=== PATIENT | male | born 1965 | race Caucasian/White ===

== ENCOUNTER 2019-03-09 16:00 | Emergency (ER) | payer MEDICAID, SELFPAY ==
[2019-03-09 16:07] VITALS: BP 133/90; PULSE 76; RESP 20; TEMP 36.4; O2SAT 98
--- NOTE | 2019-03-09 16:18 | W.ED.GENAD ---
Discharge Plan Disposition Patient Disposition: HOME Condition: Improving Discharge Details Chief Complaint: Laceration Clinical Impression: Laceration of left index finger Primary Care Provider: Jules Chris ED Provider: Onur Griggs Home Meds and New Rx's Prescriptions: Continued metformin 1,000 mg tablet 1,000 mg PO DAILY Qty: 90 RF: 4 metformin 500 mg tablet 500 mg PO HS Qty: 90 RF: 4 glipizide 10 mg tablet 10 mg PO BID Qty: 180 RF: 4 empagliflozin 10 mg tablet 10 mg PO DAILY Qty: 90 RF: 4 lancets [OneTouch Delica Lancets] 33 gauge misc .ROUTE .MEDSUPPLY Qty: 200 RF: 4 multivitamin tablet 1 tab PO DAILY Qty: 90 RF: 4 OneTouch Ultra Blue Test Strip strip .ROUTE .MEDSUPPLY Qty: 100 RF: 4 pantoprazole 40 mg tablet,delayed release (DR/EC) 40 mg PO BID Qty: 180 RF: 4 aspirin [Aspirin Low-Strength] 81 MG tablet,chewable 81 mg PO DAILY RF: 0 Discharge Instructions Instructions: Finger Laceration (ED) Additional Instructions: Return Tuesday afternoon or Tuesday for reevaluation and wound check. Keep dressing in place. Continue regular medications. Medical Decision Making 54-year-old male presents after small avulsion to the distal radial aspect on the volar surface of his left index finger. Unable to control bleeding at home and brought to the ED. States that his tetanus status is out of date. There is a small avulsion, no bone exposed, no indication for repair. Dressed with Surgicel and mild compression dressing. Stable and improved. We will have him return in 72 hours for wound check. Anticipate at that time we will be able to transition to Band-Aid. He is stable and appropriate for discharge to home. Tetanus was updated prior to discharge HPI General Mode of arrival: ambulatory. Date/Time Provider Initiated Documentation: 03/09/19 16:12. Limitations to Documentation: no limitations. Information obtained by: patient. History of Present Illness 54 year old M presents to the emergency department with the chief complaint of Left index finger avulsion, described as mild, Quality is described as dull, and is localized to the left and upper extremity. Patient reports no radiation. Patient started experiencing this minute(s) and it has been constant. No relieving factors improve symptom(s), No exacerbating factors reported . Patient notes other (Bleed). Patient did receive the following treatments prior to arrival, none Related Data Home Medications Medication Instructions Recorded Confirmed aspirin [Aspirin Low-Strength] 81 mg PO DAILY tab-cap 03/29/14 03/09/19 blood sugar diagnostic strips #100 each 07/12/18 03/09/19 empagliflozin 10 mg tablet 10 mg PO DAILY #90 tab 07/12/18 03/09/19 lancets 33 gauge #200 each 07/12/18 03/09/19 multivitamin tablet 1 tab PO DAILY #90 tab 07/12/18 03/09/19 pantoprazole 40 mg tablet,delayed 40 mg PO BID #180 tab 07/12/18 03/09/19 release glipizide 10 mg tablet 10 mg PO BID #180 tab 11/14/18 03/09/19 metformin 1,000 mg tablet 1,000 mg PO DAILY #90 tab 11/14/18 03/09/19 metformin 500 mg tablet 500 mg PO HS #90 tab 11/14/18 03/09/19 Previous Rx's Medication Instructions Recorded blood sugar diagnostic strips #100 each 07/12/18 empagliflozin 10 mg tablet 10 mg PO DAILY #90 tab 07/12/18 lancets 33 gauge #200 each 07/12/18 multivitamin tablet 1 tab PO DAILY #90 tab 07/12/18 pantoprazole 40 mg tablet,delayed 40 mg PO BID #180 tab 07/12/18 release glipizide 10 mg tablet 10 mg PO BID #180 tab 11/14/18 metformin 1,000 mg tablet 1,000 mg PO DAILY #90 tab 11/14/18 metformin 500 mg tablet 500 mg PO HS #90 tab 11/14/18 Allergies Allergy/AdvReac Type Severity Reaction Status Date / Time orange juice Allergy Severe SWELLING, Unverified 03/09/19 16:09 VOMITING General Stated Complaint: Laceration SALOME: 3 Review of Systems Review of Systems Tetanus out of date. Otherwise well. 6 systems reviewed and negative. 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 Daughter No problems noted. Social History Smoking/Tobacco Use Status: Current every day Tobacco Type: smokeless tobacco Alcohol Intake: current Alcohol Intake frequency: holidays/special occasions only Drug use: Never Substance use type: does not use What type of physical activity do you participate in: none Special villa needs: No Do you feel safe at home: Yes Do you feel safe in your relationship?: Yes Exam Narrative Exam Narrative: GEN: awake, alert, oriented 3. Pleasant, well groomed, interactive. HEAD: Normocephalic, atraumatic ENT: Mucous membranes moist, oropharynx unremarkable, External ear exam unremarkable EYES: PERRL, EOMI EXT: Full ROM, no edema, no rash. Small avulsion to the left index finger on the radial aspect. Capillary refill intact at 2 seconds, no motor dysfunction Neuro: Grossly normal neurologic exam, conversant, interactive. Psych: Speech fluent, thoughts congruent, affect normal Course Vital Signs Temperature 36.4 C L 03/09/19 16:07 Pulse 76 03/09/19 16:07 Respiratory Rate 20 03/09/19 16:07 Blood Pressure 133/90 03/09/19 16:07 Pulse Oximetry 98 03/09/19 16:07 Temperature 36.4 C L 03/09/19 16:07 Temperature Source Temporal Artery Scan 03/09/19 16:07 Pulse 76 03/09/19 16:07 Respiratory Rate 20 03/09/19 16:07 Respiratory Effort Non-Labored 03/09/19 16:07 Blood Pressure 133/90 03/09/19 16:07 Blood Pressure Position Sitting 03/09/19 16:07 Pulse Oximetry 98 03/09/19 16:07 Oxygen Delivery Method Room Air 03/09/19 16:07 Oxygen Flow Rate 0 03/09/19 16:07 Pain Level 7 03/09/19 16:07
[2019-03-09 16:39] VITALS: BP 133/90; PULSE 76; RESP 20; TEMP 36.4; O2SAT 98
[2019-03-09] MEDS: Cellulose,Oxidized 2X3 PKT 1 EACH MC (16:39)
== END 2019-03-09 16:40 | disposition home or self-care (01) ==
PROVIDERS: Emergency Provider Emergency Medicine; PCP Family Medicine
DX: S65.511A Laceration of blood vessel of left index finger, initial encounter (principal); E11.9 Type 2 diabetes mellitus without complications; Z79.84 Long term (current) use of oral hypoglycemic drugs
CPT/HCPCS: 90471; 90472; 99284

== ENCOUNTER 2019-03-12 16:05 | Emergency (ER) | payer MEDICAID, SELFPAY ==
--- NOTE | 2019-03-12 16:10 | NUR.NOTE ---
pt states that this Tuesday on the second digit of his left hand here for a wound check
[2019-03-12 16:11] VITALS: BP 114/80; PULSE 77; RESP 16; TEMP 37.1; O2SAT 98
[2019-03-12 16:17] VITALS: BP 114/80; PULSE 77; RESP 16; TEMP 37.1; O2SAT 98
--- NOTE | 2019-03-12 16:21 | W.ED.GENAD ---
Discharge Plan Disposition Patient Disposition: HOME Condition: Good Discharge Details Chief Complaint: Recheck Clinical Impression: Encounter for wound re-check Primary Care Provider: Jules Chris ED Provider: Gabino Chávez Home Meds and New Rx's Prescriptions: No Action metformin 1,000 mg tablet 1,000 mg PO DAILY Qty: 90 RF: 4 metformin 500 mg tablet 500 mg PO HS Qty: 90 RF: 4 glipizide 10 mg tablet 10 mg PO BID Qty: 180 RF: 4 empagliflozin 10 mg tablet 10 mg PO DAILY Qty: 90 RF: 4 lancets [OneTouch Delica Lancets] 33 gauge misc .ROUTE .MEDSUPPLY Qty: 200 RF: 4 multivitamin tablet 1 tab PO DAILY Qty: 90 RF: 4 OneTouch Ultra Blue Test Strip strip .ROUTE .MEDSUPPLY Qty: 100 RF: 4 pantoprazole 40 mg tablet,delayed release (DR/EC) 40 mg PO BID Qty: 180 RF: 4 aspirin [Aspirin Low-Strength] 81 MG tablet,chewable 81 mg PO DAILY RF: 0 Discharge Instructions Additional Instructions: Please keep the area bandaged and covered at all times. In the next 3 to 4 days you can begin washing it gently with soap and warm water. If you notice any redness, pain with movement, drainage, or worsening of your symptoms please return immediately for reevaluation. Please follow-up with your primary care provider in the next week for wound reassessment. If you notice any worsening of your symptoms, or any new symptoms such as vomiting, diarrhea, fever, chills, shortness of breath, chest pain, numbness, weakness, or fainting , please return immediately to the emergency department for reevaluation. Please follow up with your primary care provider as soon as possible for reassessment and reevaluation. As always, it was a pleasure participating in your medical care today. Referrals: Jules Chris MD [Primary Care Provider] - Medical Decision Making This is a pleasant 54-year-old male who presents for wound recheck after he avulsed the tip of his left index finger from his nondominant hand. Exam at this time demonstrates an excellently healing finger with good secondary intention healing, good vascular status, and no neurologic or vascular compromise on exam. He has excellent flexion and extension. With signs of good wound healing, his tetanus being updated, no clinical evidence of necrotizing component, avascular component, or infectious etiology, I feel he can be discharged home. We cleaned and scrubbed the area again with chlorhexidine, we applied Dermabond to the wound area, and re-bandage. Patient will follow-up with his PCP in the next 7 days. We discussed the importance of taking a multivitamin and vitamin C for wound healing. He is no longer smoking anymore or using nicotine. I have extensively reviewed the treatment plan and discharge instructions with the patient and their family. I have addressed all patient concerns at this time. The patient and family was made aware of what symptoms to monitor for that would warrant a return to the emergency department. Discussed the plan with the patient and family, they demonstrate verbal understanding and agreement with our assessment and plan at this time. HPI General Date/Time Provider Initiated Documentation: 03/12/19 16:07. HPI Narrative: This is a 54-year-old male with past medical history of diabetes, who presents today for evaluation of wound recheck. 72 hours ago the patient lopped off the tip of his left index finger. He was seen and assessed here, Surgicel was placed, tetanus was updated and he was instructed to return in 72 hours for wound recheck. He has had no complaints since then. He denies any fever redness or drainage. He has been keeping the area well bandaged. He has no other complaints or modifying factors at this time. Related Data Home Medications Medication Instructions Recorded Confirmed aspirin [Aspirin Low-Strength] 81 mg PO DAILY tab-cap 03/29/14 03/12/19 blood sugar diagnostic strips #100 each 07/12/18 03/12/19 empagliflozin 10 mg tablet 10 mg PO DAILY #90 tab 07/12/18 03/12/19 lancets 33 gauge #200 each 07/12/18 03/12/19 multivitamin tablet 1 tab PO DAILY #90 tab 07/12/18 03/12/19 pantoprazole 40 mg tablet,delayed 40 mg PO BID #180 tab 07/12/18 03/12/19 release glipizide 10 mg tablet 10 mg PO BID #180 tab 11/14/18 03/12/19 metformin 1,000 mg tablet 1,000 mg PO DAILY #90 tab 11/14/18 03/12/19 metformin 500 mg tablet 500 mg PO HS #90 tab 11/14/18 03/12/19 Previous Rx's Medication Instructions Recorded blood sugar diagnostic strips #100 each 07/12/18 empagliflozin 10 mg tablet 10 mg PO DAILY #90 tab 07/12/18 lancets 33 gauge #200 each 07/12/18 multivitamin tablet 1 tab PO DAILY #90 tab 07/12/18 pantoprazole 40 mg tablet,delayed 40 mg PO BID #180 tab 07/12/18 release glipizide 10 mg tablet 10 mg PO BID #180 tab 11/14/18 metformin 1,000 mg tablet 1,000 mg PO DAILY #90 tab 11/14/18 metformin 500 mg tablet 500 mg PO HS #90 tab 11/14/18 Allergies Allergy/AdvReac Type Severity Reaction Status Date / Time orange juice Allergy Severe SWELLING, Unverified 03/12/19 16:13 VOMITING General Stated Complaint: Recheck SALOME: 4 Review of Systems Review of Systems All systems reviewed & are unremarkable except as noted in HPI and below PFSH Social History Smoking/Tobacco Use Status: Current every day Tobacco Type: smokeless tobacco Alcohol Intake: current Alcohol Intake frequency: holidays/special occasions only Drug use: Never Substance use type: does not use What type of physical activity do you participate in: none Special villa needs: No Do you feel safe at home: Yes Do you feel safe in your relationship?: Yes Exam Narrative Exam Narrative: 1.Const: Well-nourished, Well-developed, appearing stated age 2.Eyes: PERRL, no conjunctival injection, and symmetrical lids. 3.ENT: Atraumatic external nose and ears. Moist MM. Neck: Symmetric, trachea midline, No thyromegaly. 4.CVS: +S1/S2, No murmurs or gallops. Peripheral pulses 2+ and equal in all extremities. Brisk capillary refill in all extremities. 5.RESP: Unlabored respiratory effort. Clear to auscultation bilaterally. No wheezes rales or rhonchi 6.GI: Soft, Nontender/Nondistended, No hepatosplenomegaly. No guarding or rebound. 7.MSK: Normocephalic, left index finger demonstrates evidence of a slightly avulsed fingertip, which is healing well. Good wound healing with secondary intention. No active bleeding, no evidence of erythema or infection. No evidence of discharge or drainage. Normal movement for flexion and extension of the finger, normal sensation surrounding the distal fingertip. No evidence of gangrene, necrotizing component or a vascular component. Surrounding the distal fingertip, there is good evidence of vascular presence, with brisk capillary refill 8.Skin: Warm, Dry. No rashes or lesions. Please see musculoskeletal for description of finger. 9.Neuro: gas check pad maker II-XII grossly intact. Sensation grossly intact, no focal neurologic deficits. 10.Psych: (AAO) x3. Appropriate mood and affect Course Vital Signs Temperature 37.1 C 03/12/19 16:11 Pulse 77 03/12/19 16:11 Respiratory Rate 16 03/12/19 16:11 Blood Pressure 114/80 03/12/19 16:11 Pulse Oximetry 98 03/12/19 16:11 Temperature 37.1 C 03/12/19 16:17 Temperature Source Skin 03/12/19 16:11 Pulse 77 03/12/19 16:17 Respiratory Rate 16 03/12/19 16:17 Respiratory Effort 03/12/19 16:15 Blood Pressure 114/80 03/12/19 16:17 Blood Pressure Position Sitting 03/12/19 16:11 Pulse Oximetry 98 03/12/19 16:17 Oxygen Delivery Method Room Air 03/12/19 16:11 Oxygen Flow Rate 0 03/12/19 16:11 Pain Level 1 03/12/19 16:17
--- NOTE | 2019-03-12 16:39 | NUR.NOTE ---
prior to discharge pt finger was bandaged wth tube anibal
== END 2019-03-12 16:40 | disposition home or self-care (01) ==
PROVIDERS: Emergency Provider Student in an Organized Health Care Education/Training Program; PCP Family Medicine
DX: S61.211D Laceration without foreign body of left index finger without damage to nail, subsequent encounter (principal); X58.XXXD Exposure to other specified factors, subsequent encounter; E11.9 Type 2 diabetes mellitus without complications; Z79.84 Long term (current) use of oral hypoglycemic drugs

== ENCOUNTER 2019-03-12 16:40 | Outpatient (CLI) | payer MEDICAID, SELFPAY ==
[2019-03-12 18:58] LABS: Hemoglobin A1C 8.9 % (4.5-6.2)
== END 2019-03-12 17:00 ==
PROVIDERS: PCP Family Medicine; Visit Provider Family Medicine
DX: E11.9 Type 2 diabetes mellitus without complications (principal)
CPT/HCPCS: 36415; 83036

== ENCOUNTER 2019-06-22 07:47 | Outpatient (CLI) | payer MEDICAID, SELFPAY ==
[2019-06-22 09:31] LABS: Hemoglobin A1C 7.3 % (4.5-6.2)
[2019-06-22 09:35] LABS: Anion Gap 12.2 mmol/L (3-11); BUN 19 mg/dL (7-18); CO2 23.8 mmol/L (21.0-32.0); CREATININE 0.95 mg/dL (0.70-1.30); Chloride 103 mmol/L (98-107); Glucose 205 mg/dL (70-100); Potassium 4.5 mmol/L (3.5-5.1); Sodium 139 mmol/L (136-145)
== END 2019-06-22 08:07 ==
PROVIDERS: PCP Family Medicine; Visit Provider Family Medicine
DX: E11.65 Type 2 diabetes mellitus with hyperglycemia (principal)
CPT/HCPCS: 36415; 80048; 83036

== ENCOUNTER 2020-01-28 08:52 | Emergency (ER) | payer MEDICAID, SELFPAY ==
[2020-01-28 08:59] VITALS: BP 134/79; PULSE 98; TEMP 36.7; O2SAT 96
--- NOTE | 2020-01-28 08:59 | ED.GENADUL_ITS ---
Discharge Plan Disposition Patient Disposition: HOME Condition: Stable Discharge Details Chief Complaint: Laceration Clinical Impression: Open finger fracture Primary Care Provider: Jules Chris ED Provider: Erasmo Bear Home Meds and New Rx's Prescriptions: New cephalexin [Keflex] 500 mg capsule 500 mg PO QID 10 Days Qty: 40 RF: 0 No Action glipizide 10 mg tablet 10 mg PO BID Qty: 180 RF: 4 (DME) FreeStyle John 14 Day [place] Misc See Rx Instructions .ROUTE .MEDSUPPLY Qty: 1 RF: 4 (DME) FreeStyle John 14 Day Sensor Kit See Rx Instructions .ROUTE .MEDSUPPLY Qty: 1 RF: 4 (DME) lancets [OneTouch Delica Lancets] 33 gauge misc See Dose Instructions .ROUTE .MEDSUPPLY Qty: 200 RF: 4 multivitamin tablet 1 tab PO DAILY Qty: 90 RF: 4 aspirin [Aspirin Low-Strength] 81 MG tablet,chewable 81 mg PO DAILY RF: 0 (DME) OneTouch Ultra Blue Test Strip strip See Dose Instructions .ROUTE .MEDSUPPLY Qty: 100 RF: 4 empagliflozin 10 mg tablet 10 mg PO DAILY Qty: 90 RF: 4 pantoprazole 40 mg tablet,delayed release (DR/EC) 40 mg PO BID Qty: 180 RF: 4 metformin 500 mg tablet 500 mg PO HS Qty: 90 RF: 4 metformin 1,000 mg tablet 1,000 mg PO DAILY Qty: 90 RF: 4 Discharge Instructions Instructions: Finger Fracture (ED) Additional Instructions: Keflex as directed. Rest, elevate, change outer dressing daily, Dermabond glue will come off on its own in the next 5 days or so. I have given you the name and number of our local orthopedic, Dr. Bray, I recommend contacting his office later today or tomorrow for prompt outpatient reevaluation. Ideally being evaluated by the end of the week would be in your best interest to avoid unforeseen complications. Referrals: Saroj Bray MD [ [facility] STAFF PHYSICIAN] - Medical Decision Making 54-year-old gentleman with a left middle finger injury, Omar versus finger. Nondominant hand. Tetanus up-to-date. Will obtain x-ray to rule out bony involvement. Wound will be thoroughly cleaned and irrigated. Will perform digital block and repair the laceration. Digital block performed using a total of 5 cc 2% lidocaine. Patient tolerated well. The laceration was thoroughly cleaned and irrigated. Upon reassessment, there is no true laceration that required approximation. The wound margins were irregular and jagged. There was loose tissue that could be laid back like a flap laceration. The wound was loosely approximated using Dermabond. Patient tolerated well. Once the Dermabond was completely dried a bulky nonstick dressing was applied. X-ray reveals subtle tuft fracture. Discussed plan with patient. He would prefer IM medication over IV medication. Will give 1 g IM Ancef now, prescribed Keflex, and set him up on the orthopedic out patient list Patient with no additional questions or concerns, comfortable discharge Medical Records Medical records reviewed: Yes I reviewed the patient's medical records. Imaging Data Radiologic Study: Attestation: I personally reviewed and interpreted this imaging study as follows: Imaging: X-Ray My impression: Subtle left third finger tuft fracture HPI General Mode of arrival: ambulatory . Date/Time Provider Initiated Documentation: 01/28/20 08:55 . Limitations to Documentation: no limitations . Information obtained by: patient . HPI Narrative: 54-year-old gentleman, history of diabetes, who is right-hand dominant presents with a left middle fing er injury that he sustained at work just prior to arrival. No other injury. Tetanus up-to-date. Pain is a 4 out of 10. Sawblade versus fingertip. Denies numbness, tingling, weakness. Related Data Home Medications Medication Instructions Recorded Confirmed aspirin [Aspirin Low-Strength] 81 mg PO DAILY tab-cap 03/29/14 12/25/19 lancets 33 gauge #200 each 07/12/18 12/25/19 multivitamin 1 tab PO DAILY #90 tab 07/12/18 12/25/19 glipizide 10 mg tablet 10 mg PO BID #180 tab 11/14/18 12/25/19 blood sugar diagnostic #100 each 04/27/19 12/25/19 empagliflozin 10 mg tablet 10 mg PO DAILY #90 tab 05/07/19 12/25/19 flash glucose scanning reader #1 each 10/23/19 12/25/19 flash glucose sensor #1 each 10/23/19 12/25/19 pantoprazole 40 mg tablet,delayed 40 mg PO BID #180 tab 11/20/19 12/25/19 release metformin 1,000 mg tablet 1,000 mg PO DAILY #90 tab 12/11/19 12/25/19 metformin 500 mg tablet 500 mg PO HS #90 tab 12/11/19 12/25/19 cephalexin [Keflex] 500 mg PO QID 10 Days #40 cap 01/28/20 Previous Rx's Medication Instructions Recorded lancets 33 gauge #200 each 07/12/18 multivitamin 1 tab PO DAILY #90 tab 07/12/18 glipizide 10 mg tablet 10 mg PO BID #180 tab 11/14/18 blood sugar diagnostic #100 each 04/27/19 empagliflozin 10 mg tablet 10 mg PO DAILY #90 tab 05/07/19 flash glucose scanning reader #1 each 10/23/19 flash glucose sensor #1 each 10/23/19 pantoprazole 40 mg tablet,delayed 40 mg PO BID #180 tab 11/20/19 release metformin 1,000 mg tablet 1,000 mg PO DAILY #90 tab 12/11/19 metformin 500 mg tablet 500 mg PO HS #90 tab 12/11/19 cephalexin [Keflex] 500 mg PO QID 10 Days #40 cap 01/28/20 Allergies Allergy/AdvReac Type Severity Reaction Status Date / Time orange juice Allergy Severe SWELLING, Unverified 01/28/20 09:31 VOMITING General SALOME: 4 Review of Systems Cardiovascular Cardiovascular: Denies chest pain Gastrointestinal Gastrointestinal: Denies nausea and Denies vomiting Musculoskeletal Musculoskeletal: Denies numbness and Denies tingling Integumentary/Breasts Skin/Breast: Denies rash Neurologic Neurologic: Denies numbness and Denies tingling [facility] Medical History Barretts esophagus (Chronic 04/28/15) DR. 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 Daughter No problems noted. Social History Smoking/Tobacco Use Status: Current every day Tobacco Type: smokeless tobacco Alcohol Intake: current Alcohol Intake frequency: holidays/special occasions only Drug use: Never Substance use type: does not use What type of physical activity do you participate in: none Special villa needs: No Do you feel safe at home: Yes Do you feel safe in your relationship?: Yes Exam Const General: cooperative, healthy appearing, comfortable and no acute distress Orientation: alert and awake HENMT Head: normal to inspection, normocephalic and atraumatic Mouth: moist mucous membranes Eyes Conjunctivae: conjunctivae normal Neck Neck: normal visual inspection, trachea midline and supple Resp Effort & Inspection: normal respiratory effort and able to speak in complete sentences Cardio Rate: regular rate Rhythm: regular rhythm Skin General skin exam: no rashes or lesions noted Neuro General: patient alert, patient awake, moves all extremities and no focal motor deficits Motor: muscle tone normal throughout and strength 5/5 throughout Sensory Exam: no sensory deficits noted Extrem Left upper extremity: hand Details: normal capillary refill, neuromotor exam normal, neurosensory exam normal, tendon exam normal, tenderness (Distal left middle finger), normal ROM of fingers, no swelling, laceration (Irregular, distal to DIP, both extensor and flexor aspect) and other (Laceration is irregular, the distal two thirds of the nail had been removed) Psych Appearance: grossly normal Mental Status: mental status grossly normal
--- NOTE | 2020-01-28 09:00 | DI.RAD_ITS ---
EXAM: XR FINGER LT MIDDLE CLINICAL HISTORY: saw vs finger TECHNIQUE: COMPARISON: LEFT THUMB from 04/06/2011 FINDINGS: Three views were obtained. There is soft tissue defect of the tip of the middle finger with a minima l associated lucency of the tuft of the distal phalanx of the middle finger which appears to represen t a minimally displaced fracture. No other bony abnormality seen. IMPRESSION:
[2020-01-28] MEDS: ceFAZolin 1,000 MG VIAL 1000 MG IM (10:31)
[2020-01-28 10:53] VITALS: BP 114/74; PULSE 88; TEMP 37; O2SAT 96
== END 2020-01-28 10:59 | disposition home or self-care (01) ==
LOC: ER 10:23
PROVIDERS: Emergency Provider Physician Assistant; PCP Family Medicine
DX: S62.633B Displaced fracture of distal phalanx of left middle finger, initial encounter for open fracture (principal); W31.2XXA Contact with powered woodworking and forming machines, initial encounter; E11.9 Type 2 diabetes mellitus without complications; Z79.84 Long term (current) use of oral hypoglycemic drugs
CPT/HCPCS: 12001; 26750; 96372; 73140; J0690

== ENCOUNTER 2020-11-25 03:40 | Outpatient (CLI) | payer MEDICAID, SELFPAY ==
[2020-11-25 08:46] LABS: CREATININE 1.04 mg/dL (0.70-1.30); Calculated LDL 196 mg/dL (<100); Cholesterol 280 mg/dL (<200); HDL Cholesterol 47 mg/dL (40-60); Triglyceride 186 mg/dL (<150)
[2020-11-25 08:54] LABS: Hemoglobin A1C 8.1 % (<5.7)
== END 2020-11-25 04:00 ==
PROVIDERS: PCP Nurse Practitioner; Visit Provider Nurse Practitioner
DX: E11.65 Type 2 diabetes mellitus with hyperglycemia (principal); E78.5 Hyperlipidemia, unspecified
CPT/HCPCS: 36415; 80061; 82565; 83036

== ENCOUNTER 2021-02-18 16:27 | Outpatient (REF) | payer MEDICAID, SELFPAY ==
[2021-02-18 16:09] LABS: Hemoglobin A1C 7.6 % (<5.7)
[2021-02-18 16:14] LABS: ALT 30 U/L (16-63); AST 18 U/L (15-37); Alkaline Phosphatase 52 U/L (46-116); Anion Gap 10.5 mmol/L (3-11); BUN 15 mg/dL (7-18); Bilirubin, Total 0.5 mg/dL (0.2-1.0); CO2 26.5 mmol/L (21.0-32.0); Calcium 9.1 mg/dL (8.5-10.1); Calculated LDL 175 mg/dL (<100); Chloride 104 mmol/L (98-107); Cholesterol 256 mg/dL (<200); Glucose 154 mg/dL (74-106); HDL Cholesterol 46 mg/dL (40-60); Potassium 4.1 mmol/L (3.5-5.1); Sodium 141 mmol/L (136-145); Total Protein 7.2 g/dL (6.4-8.2); Triglyceride 179 mg/dL (<150)
== END 2021-02-18 16:28 | disposition home or self-care (01) ==
LOC: NCHCN 16:27
PROVIDERS: PCP Physician Assistant; Visit Provider Physician Assistant
DX: Z13.1 Encounter for screening for diabetes mellitus (principal); Z12.5 Encounter for screening for malignant neoplasm of prostate; Z13.220 Encounter for screening for lipoid disorders
CPT/HCPCS: 80053; 80061; 84153; 83036

== ENCOUNTER 2022-04-16 19:10 | Outpatient (REF) | payer MEDICAID, SELFPAY ==
[2022-04-16 19:24] LABS: HCT 43.5 % (40.0-50.0); MCH 29.8 pg (27.0-33.0); MCHC 34.5 % (32.0-36.0); MCV 87 fL (80-95); MPV 10.3 fL (8.0-11.0); Platelet Count 251 10^3/uL (130-400); RBC 5.03 10^6/uL (4.36-5.78); RDW 12.1 % (11.8-14.1); RDW-SD 38.5 fL; WBC 9.15 10^3/uL (4.4-10.8)
[2022-04-16 20:11] LABS: Hemoglobin A1C 9.5 % (<5.7)
[2022-04-16 20:20] LABS: Anion Gap 11.5 mmol/L (3-11); BUN 19 mg/dL (7-18); CO2 23.5 mmol/L (21.0-32.0); CREATININE 0.9 mg/dL (0.70-1.30); Calculated LDL 170 mg/dL (<100); Chloride 102 mmol/L (98-107); Cholesterol 241 mg/dL (<200); Glucose 225 mg/dL (74-106); HDL Cholesterol 50 mg/dL (40-60); Sodium 137 mmol/L (136-145); Triglyceride 109 mg/dL (<150)
== END 2022-04-16 19:11 | disposition home or self-care (01) ==
LOC: NCHCN 19:10
PROVIDERS: PCP Physician Assistant; Visit Provider Physician Assistant
DX: E78.00 Pure hypercholesterolemia, unspecified (principal); E11.9 Type 2 diabetes mellitus without complications; Z12.5 Encounter for screening for malignant neoplasm of prostate
CPT/HCPCS: 80048; 80061; 85027; 83036

== ENCOUNTER 2023-09-19 17:22 | Emergency (ER) | payer OTHER, SELFPAY ==
[2023-09-19 17:29] VITALS: BP 126/77; PULSE 81; RESP 16; TEMP 37.2; O2SAT 98
[2023-09-19] MEDS: Normal Saline 1,000 ML 1000 ML IV ×2 (17:54→18:47)
[2023-09-19 18:00] LABS: Abs Immature Grans 0.03 10^3/uL (0.0-0.06); Absolute Basophil Count 0.05 10^3/uL (0.0-0.2); Absolute Eosinophil Count 0.07 10^3/uL (0.0-0.7); Absolute Monocyte Count 0.59 10^3/uL (0.1-0.8); Absolute Neutrophil Count 5.17 10^3/uL (1.2-6.7); BE (Venous) 1 mmol/L (-2-3); Basophils % 0.6; Eosinophils % 0.9; HCO3 (Venous) 26 mmol/L (23-28); HCT 40.2 % (40.0-50.0); Immature Grans % 0.4; Lymphocytes % 24.3; MCH 30.1 pg (27.0-33.0); MCHC 34.8 % (32.0-36.0); MCV 87 fL (80-95); MPV 9.7 fL (8.0-11.0); Monocytes % 7.6; Neutrophils % 66.2; O2 Sat (Venous) 64 %; Platelet Count 247 10^3/uL (130-400); RBC 4.65 10^6/uL (4.36-5.78); RDW-SD 38.1 fL; TCO2 (Venous) 23 mmol/L (24-29); WBC 7.81 10^3/uL (4.4-10.8); pCO2 (Venous) 43 mmHg (41-51); pH (Venous) 7.39 (7.31-7.41); pO2 (Venous) 34 mmHg
[2023-09-19 18:19] LABS: ALT 25 U/L (16-63); AST 15 U/L (15-37); Alkaline Phosphatase 75 U/L (46-116); BUN 25 mg/dL (7-18); Bilirubin, Total 0.5 mg/dL (0.2-1.0); CREATININE 1.1 mg/dL (0.70-1.30); Calcium 9.3 mg/dL (8.5-10.1); Chloride 94 mmol/L (98-107); Estimated GFR 76.85 (mL/min/1.73m2); Magnesium 2.4 mg/dL (1.8-2.4); Potassium 4.4 mmol/L (3.5-5.1); Sodium 129 mmol/L (136-145); Total Protein 7.8 g/dL (6.4-8.2)
[2023-09-19 18:21] LABS: Glucose 567 mg/dL (74-106)
[2023-09-19 19:13] LABS: Bilirubin Negative (Negative); Blood Trace-intact (Negative); Clarity Clear (Clear); Glucose 500 mg/dL (Negative); Ketones 40 mg/dL (Negative); Leukocyte Esterase Negative (Negative); Nitrite Negative (Negative); Urobilinogen 0.2 mg/dL (Up to 0.2)
[2023-09-19 19:20] LABS: Bacteria Negative HPF (Negative); Crystals Negative HPF (Negative); Epithelial Cells Negative HPF (Negative); Mucus Negative (Negative); RBC 0-2 HPF (0-2); WBC Negative HPF (0-5)
[2023-09-19 19:21] LABS: C & S Indicated? No; Casts Negative LPF (Negative)
[2023-09-19] MEDS: Insulin REGULAR-Human 100 UNITS/ML UNIT 10 UNITS SC (19:23)
[2023-09-19] MEDS: Insulin Glargine 300 UNITS/3 ML PEN 30 UNITS SC (19:44)
--- NOTE | 2023-09-19 20:28 | W.ED.GENAD ---
Discharge Plan Disposition Patient Disposition: Home Discharge Details Clinical Impression: Hyperglycemia Primary Care Provider: Wesley Mendoza ED Provider: Everardo Cruz Home Meds and New Rx's Prescriptions: No Action (DME) FreeStyle John 14 Day [place] Misc See Rx Instructions .ROUTE .MEDSUPPLY Qty: 1 4RF Rx Instructions: Check Blood sugar 4 times a day atorvastatin 80 mg tablet 80 mg PO QHS Qty: 90 3RF multivitamin tablet 1 tab PO DAILY Qty: 90 4RF aspirin [Aspirin Low-Strength] 81 MG tablet,chewable 81 mg PO DAILY insulin aspart U-100 [Novolog FlexPen U-100 Insulin] 100 unit/mL (3 mL) insulin pen See Rx Instructions SC AC MDD 35 units Qty: 30 5RF Rx Instructions: 5 units before breakfast, 3 units before lunch, 9 units before dinner subcut before meals; (DME) OneTouch Ultra Blue Test Strip Strip See Dose Instructions .ROUTE .MEDSUPPLY Qty: 100 4RF Dose Instruction: As directed Rx Instructions: Test QID (DME) FreeStyle John 14 Day Sensor Kit See Rx Instructions .ROUTE .MEDSUPPLY Qty: 1 4RF Rx Instructions: Check Blood sugar 4 times a day (DME) lancets [OneTouch Delica Lancets] 33 gauge misc See Dose Instructions .ROUTE .MEDSUPPLY Qty: 200 4RF Dose Instruction: As directed Rx Instructions: one BID metformin 500 mg tablet 500 mg PO HS Qty: 90 4RF metformin 1,000 mg tablet 1,000 mg PO DAILY Qty: 90 4RF Rx Instructions: Take in am pantoprazole 40 mg tablet,delayed release (DR/EC) 40 mg PO BID Qty: 180 4RF (DME) pen needle, diabetic 31 gauge x 3/16 needle See Rx Instructions .ROUTE .MEDSUPPLY Qty: 100 4RF Rx Instructions: 1 unit SC AC apple cider vinegar 500 mg tablet 1,500 mg PO DAILY ascorbic acid (vitamin C) [Vitamin C] 1,000 mg Tablet 1,000 mg PO DAILY Discharge Instructions Instructions: Diabetic Hyperglycemia (ED) Additional Instructions: Please use the provided insulin pen and take your normally prescribed 30 units before bed unless this Lantus prescription was changed by your primary care then please follow their directions. Please eat a low carbohydrate diet as carbohydrates will continue to increase your sugar as you wait for your new medications and insurance to provide medication coverage. If you have any new or significant worsening of symptoms please return to the emergency department for reassessment Referrals: Wesley Mendoza [Primary Care Provider] - Medical Decision Making Patient presenting to the emergency department for chief complaint of high blood sugar. Patient reports that he has been out of his medication due to insurance change for over 6 weeks. Patient states he has been attempting to just use diet and boal-tep-bzuaral apple cider vinegar and glycemic support supplement. He states that his sugars normally run between 250 and 300 but over the last 24 to 48 hours has had significant increase in thirst and urination. said today she noticed some slight slurred speech and they check patient's blood sugar and machine at home read high. Patient denies any focal neurological findings, is alert and oriented x3 and no focal neurological findings on exam. We feel that patient slurred speech possibly secondary to his increased blood sugar. We will treat patient with IV fluid boluses pending lab work-up. Reviewed patient's labs and CBC is unremarkable, VBG shows no acidosis and only slightly low CO2 otherwise is unremarkable. CMP does show a slightly low sodium at 129, chloride of 94, BUN of 25, glucose of 567 otherwise all other lab values are in normal range, urinalysis does show ketones blood and glucose otherwise negative. given that patient's potassium was fine and I did review his home medications which she is supposed to be on Lantus we did give patient his normally prescribed 30 units of nightly Lantus along with 10 units of regular insulin. Fingerstick glucose was checked after 2 bags of normal saline were given and the above-noted insulin. Patient's glucose is 270. Patient states significant improvement of overall symptoms and how he is feeling and is requesting to go home. Lantus pen was given to patient due to his current financial constraints and insurance issues while he is pending getting his medications that were just prescribed to him. Otherwise I do feel that patient is able to safely follow-up with his primary care provider and obtain medications on outpatient basis and start them as soon as possible. Did discuss with patient return precautions especially if he worsens or has persistent elevated blood sugar. After discussion of diagnosis and plan of care, significant other and patient has no further needs, questions, or concerns and states clear understanding to return to the emergency department for any worsening symptoms. This documentation was generated using [employer] dictation system, please disregard any oddities of phrase or misspellings. Lab Data Lab results reviewed: Yes I reviewed the patient's lab results. HPI General Mode of arrival: ambulatory. Date/Time Provider Initiated Documentation: 09/19/23 17:25. Limitations to Documentation: no limitations. Information obtained by: patient, family and RN notes reviewed. History of Present Illness 58 year old M presents to the emergency department with the chief complaint of High blood sugar, described as similar to prior episodes, Patient started experiencing this day(s) (1) Patient notes no other symptoms.. Patient did receive the following treatments prior to arrival, none Related Data Home Medications Medication Instructions Recorded Confirmed aspirin 81 mg chewable tablet 81 mg PO DAILY 03/29/14 09/19/23 (Aspirin Low-Strength) multivitamin 1 tab PO DAILY #90 tabs 07/12/18 09/19/23 flash glucose scanning reader #1 ea 10/23/19 11/25/20 (FreeStyle John 14 Day [place]) ascorbic acid (vitamin C) 1,000 mg 1,000 mg PO DAILY 01/28/20 09/19/23 tablet (Vitamin C) insulin aspart U-100 100 unit/mL See Rx Instructions subcut AC #30 08/06/20 09/19/23 (3 mL) subcutaneous pen (Novolog mL FlexPen U-100 Insulin aspart) blood sugar diagnostic (OneTouch #100 ea 11/04/20 11/25/20 Ultra Blue Test Strip) flash glucose sensor (FreeStyle #1 ea 11/04/20 11/25/20 John 14 Day Sensor kit) lancets 33 gauge (OneTouch Delica #200 ea 11/04/20 11/25/20 Lancets) metformin 1,000 mg tablet 1,000 mg PO DAILY #90 tabs 11/04/20 09/19/23 metformin 500 mg tablet 500 mg PO HS #90 tabs 11/04/20 09/19/23 pantoprazole 40 mg tablet,delayed 40 mg PO BID #180 tabs 11/04/20 09/19/23 release pen needle, diabetic 31 gauge x #100 ea 11/04/20 11/25/20 3/16 atorvastatin 80 mg tablet 80 mg PO QHS #90 tabs 11/25/20 09/19/23 apple cider vinegar 500 mg tablet 1,500 mg PO DAILY 09/19/23 09/19/23 Previous Rx's Medication Instructions Recorded multivitamin 1 tab PO DAILY #90 tabs 07/12/18 flash glucose scanning reader #1 ea 10/23/19 (FreeStyle John 14 Day [place]) insulin aspart U-100 100 unit/mL See Rx Instructions subcut AC #30 08/06/20 (3 mL) subcutaneous pen (Novolog mL FlexPen U-100 Insulin aspart) blood sugar diagnostic (Meaningfyuch #100 ea 11/04/20 Ultra Blue Test Strip) flash glucose sensor (Advanced Digital DesignStyle #1 ea 11/04/20 John 14 Day Sensor kit) lancets 33 gauge (Synergy HubTouch Delica #200 ea 11/04/20 Lancets) metformin 1,000 mg tablet 1,000 mg PO DAILY #90 tabs 11/04/20 metformin 500 mg tablet 500 mg PO HS #90 tabs 11/04/20 pantoprazole 40 mg tablet,delayed 40 mg PO BID #180 tabs 11/04/20 release pen needle, diabetic 31 gauge x #100 ea 11/04/20 3/16 atorvastatin 80 mg tablet 80 mg PO QHS #90 tabs 11/25/20 Allergies Allergy/AdvReac Type Severity Reaction Status Date / Time orange juice Allergy Severe SWELLING, Unverified 09/19/23 17:58 VOMITING General Stated Complaint: Diabetes SALOME: 2 Review of Systems Constitutional Constitutional: Denies chills, Denies fever(s) and Denies headache(s) Eyes Eyes: Denies change in vision ENT Ears, Nose, Mouth, and Throat: Denies headache(s), Denies nasal congestion and Denies sore throat Cardiovascular Cardiovascular: Denies chest pain, Denies syncope and Denies dyspnea Respiratory Respiratory: Denies dyspnea Gastrointestinal Gastrointestinal: Denies abdominal pain, Denies nausea and Denies vomiting Genitourinary Genitourinary: Reports urinary frequency Neurologic Neurologic: Reports abnormal speech, Denies confusion, Denies syncope, Denies headache(s), Denies localized weakness, Denies seizure-like activity and Denies tremor(s) Psychiatric Psychiatric: Denies confusion Endocrine Endocrine: Reports polydipsia and Reports polyuria PFSH All Active Problems Hyperglycemia (Acute) Diabetes mellitus type II, uncontrolled (Chronic 02/09/13) 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 PETIT; 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-EGD Gastro-esophageal reflux disease with esophagitis Diabetes mellitus Surgical History History of open reduction and internal fixation (ORIF) procedure - 2009 (?) Fracture, Open Treatment Thumb and fingers Family History Father Heart disease CABG Daughter No problems noted. Daughter No problems noted. Mother No problems noted. Son No problems noted. Son No problems noted. Social History Smoking/Tobacco Use Status: Current every day Tobacco Type: smokeless tobacco Smokeless tobacco user: snuff Quit status: has quit before Smoking risk assessment performed?: Yes Alcohol Intake: current Alcohol Intake frequency: 0-2 drinks per day Alcohol type: hard liquor Drug use: Never Substance use type: does not use Caregiver/Support person: No Household members: spouse Housing: house Communication Needs: Hard of Hearing Pets and animals: Yes Pets and animals: cat(s) and dog(s) Sexually active: Yes Do you think of yourself as: straight/heterosexual Current gender identity: male What is your relationship status?: How often do you talk on the phone with friends or family?: three or more times per week How often do you get together with friends or relatives?: never How often do you attend presybeterian or uatsdin services?: decline to answer Do you belong to any clubs or organized social groups?: no Panel score (0-1 are the most socially isolated patients): 2 What type of physical activity do you participate in: decline to answer Duration: decline to answer Frequency: decline to answer Jimena/Islam: None Special jimena needs: No Seatbelt use: sometimes Helmet use: No 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 Do you feel safe at home: Yes Do you feel safe in your relationship?: Yes Victim of physical abuse: No Victim of emotional abuse: No Victim of sexual abuse: No Would you like helpful sources: No Exam Const General: cooperative, healthy appearing, no acute distress and well groomed Orientation: alert, awake and oriented x3 HENMT Head: normal to inspection Ears: hearing grossly normal bilaterally Mouth: oral mucosae normal and moist mucous membranes Throat: posterior oropharynx normal Eyes Visual Franks: normal visual franks by confrontation Alignment and Position: alignment normal Periorbital: periorbital findings normal Eyelids: eyelids normal Sclera: sclerae normal Cornea: corneas normal Pupils: PERRL EOM: EOM intact bilaterally Neck Neck: normal visual inspection, full ROM and no meningeal signs Resp Effort & Inspection: normal respiratory effort and able to speak in complete sentences Auscultation: clear to auscultation bilaterally Cardio Rate: regular rate Rhythm: regular rhythm Heart Sounds: S1 normal and S2 normal Neuro General: patient alert, patient awake, patient oriented x3, gait normal, tone normal, moves all extremities, CN's II-XI intact bilaterally and not confused Cognition: normal cognition Speech: speech normal Motor: muscle tone normal throughout, strength 5/5 throughout, no pronator drift, no movement abnormalities noted and no fasciculations Sensory Exam: no sensory deficits noted Coordination: [id number] test normal and Does not sway with eyes open Course Vital Signs Vital signs: Vital Signs Temperature 37.2 C 09/19/23 17:29 Pulse 81 09/19/23 17:29 Respiratory Rate 16 09/19/23 17:29 Blood Pressure 126/77 09/19/23 17:29 Pulse Oximetry 98 09/19/23 17:29 Temperature 37.2 C 09/19/23 17:29 Temperature Source Temporal Artery Scan 09/19/23 17:29 Pulse 81 09/19/23 17:29 Respiratory Rate 16 09/19/23 17:29 Respiratory Effort Normal 09/19/23 17:50 Blood Pressure 126/77 09/19/23 17:29 Blood Pressure Position Sitting 09/19/23 17:29 Pulse Oximetry 98 09/19/23 17:29 Oxygen Delivery Method Room Air 09/19/23 17:29 Oxygen Flow Rate 0 09/19/23 17:29 Lab/Test Results Lab/Test Results: Laboratory Tests Range/Units 09/19/23 09/19/23 17:53 19:02 WBC (4.4-10.8) 10^3/uL 7.81 RBC (4.36-5.78) 10^6/uL 4.65 Hgb (13.5-17.5) g/dL 14.0 Hct (40.0-50.0) % 40.2 MCV (80-95) fL 87 MCH (27.0-33.0) pg 30.1 MCHC (32.0-36.0) % 34.8 RDW (11.8-14.1) % 12.0 Plt Count (130-400) 10^3/uL 247 MPV (8.0-11.0) fL 9.7 Immature Gran % 0.4 Neutrophils % 66.2 Lymphocytes % 24.3 Monocytes % 7.6 Eosinophils % 0.9 Basophils % 0.6 Nucleated RBC % (0.0-0.3) % 0.0 Absolute Neutrophils (1.2-6.7) 10^3/uL 5.17 Absolute Lymphocytes (1.2-3.4) 10^3/uL 1.90 Absolute Monocytes (0.1-0.8) 10^3/uL 0.59 Absolute Eosinophils (0.0-0.7) 10^3/uL 0.07 Absolute Basophils (0.0-0.2) 10^3/uL 0.05 VBG pH (7.31-7.41) 7.39 VBG pCO2 (41-51) mmHg 43 VBG pO2 mmHg 34 VBG HCO3 (23-28) mmol/L 26 VBG Total CO2 (24-29) mmol/L 23 L VBG O2 Saturation % 64 VBG Base Excess (-2-3) mmol/L 1 Sodium (136-145) mmol/L 129 L Potassium (3.5-5.1) mmol/L 4.4 Chloride (98-107) mmol/L 94 L Carbon Dioxide (21.0-32.0) mmol/L 27.0 Anion Gap (3-11) mmol/L 8.0 BUN (7-18) mg/dL 25 H Creatinine (0.70-1.30) mg/dL 1.1 Est GFR (CKD-EPI 2020) (mL/min/1.73m2) 76.85 Glucose (74-106) mg/dL 567 H* Calcium (8.5-10.1) mg/dL 9.3 Magnesium (1.8-2.4) mg/dL 2.4 Total Bilirubin (0.2-1.0) mg/dL 0.5 AST (15-37) U/L 15 ALT (16-63) U/L 25 Alkaline Phosphatase (46-116) U/L 75 Total Protein (6.4-8.2) g/dL 7.8 Albumin (3.4-5.0) g/dL 4.0 Urine Color (Yellow) Yellow Urine Clarity (Clear) Clear Urine pH (5-8) 5.0 Ur Specific [place] (1.005-1.025) 1.010 Urine Protein (Negative) mg/dL Negative Urine Ketones (Negative) mg/dL 40 H Urine Blood (Negative) Trace-intact H Urine Nitrite (Negative) Negative Urine Bilirubin (Negative) Negative Urine Urobilinogen (Up to 0.2) mg/dL 0.2 Ur Leukocyte Esterase (Negative) Negative Urine RBC (0-2) HPF 0-2 Urine WBC (0-5) HPF Negative Ur Epithelial Cells (Negative) HPF Negative Urine Crystals (Negative) HPF Negative Urine Bacteria (Negative) HPF Negative Urine Casts (Negative) LPF Negative Urine Mucus (Negative) Negative Ur Culture Indicated? No Urine Glucose (Negative) mg/dL 500 H
== END 2023-09-19 20:37 | disposition home or self-care (01) ==
PROVIDERS: Emergency Provider Nurse Practitioner Family; PCP Physician Assistant
DX: E11.65 Type 2 diabetes mellitus with hyperglycemia (principal); Z91.141 Patient's other noncompliance with medication regimen due to financial hardship
CPT/HCPCS: 80053; 82805; 96360; 96361; 96372; 99284; 81003; 81015; 83735; 85025

== ENCOUNTER 2023-10-13 10:46 | Outpatient (REF) | payer OTHER, SELFPAY ==
[2023-10-13 17:28] LABS: ALT 28 U/L (16-63); AST 17 U/L (15-37); Albumin 3.8 g/dL (3.4-5.0); Alkaline Phosphatase 63 U/L (46-116); Anion Gap 9.7 mmol/L (3-11); BUN 21 mg/dL (7-18); Bilirubin, Total 0.6 mg/dL (0.2-1.0); CO2 26.3 mmol/L (21.0-32.0); CREATININE 1.1 mg/dL (0.70-1.30); Calcium 9.4 mg/dL (8.5-10.1); Calculated LDL 178 mg/dL (<100); Chloride 103 mmol/L (98-107); Cholesterol 259 mg/dL (<200); Estimated GFR 76.85 (mL/min/1.73m2); Glucose 189 mg/dL (74-106); HDL Cholesterol 53 mg/dL (40-60); Potassium 4.7 mmol/L (3.5-5.1); Sodium 139 mmol/L (136-145); Total Protein 7.1 g/dL (6.4-8.2); Triglyceride 141 mg/dL (<150)
== END 2023-10-13 10:47 | disposition home or self-care (01) ==
LOC: NCHCN 10:46
PROVIDERS: PCP Physician Assistant; Visit Provider Nurse Practitioner Family
DX: E11.21 Type 2 diabetes mellitus with diabetic nephropathy (principal)
CPT/HCPCS: 80053; 80061

== ENCOUNTER 2025-02-20 15:50 | Emergency (ER) | payer SELFPAY ==
[2025-02-20 15:53] VITALS: BP 138/94; PULSE 84; RESP 16; TEMP 37.3; O2SAT 97
[2025-02-20 16:51] VITALS: BP 127/85; PULSE 85; RESP 21; TEMP 36.7; O2SAT 100
--- NOTE | 2025-02-20 17:14 | W.ED.GENAD ---
Discharge Plan Disposition Patient Disposition: Home Condition: Stable Discharge Details Clinical Impression: Dental infection Primary Care Provider: Wesley Mendoza ED Provider: Gabino Reeves Home Meds and New Rx's Prescriptions: New amoxicillin-pot clavulanate 875-125 mg tablet 1 tab PO BID 14 Days Qty: 28 0RF chlorhexidine gluconate 0.12 % mouthwash 15 ml mucous membrane DAILY Qty: 1893 0RF No Action (DME) FreeStyle John 14 Day [place] Misc See Rx Instructions .ROUTE .MEDSUPPLY Qty: 1 4RF Rx Instructions: Check Blood sugar 4 times a day insulin aspart U-100 [Novolog FlexPen U-100 Insulin] 100 unit/mL (3 mL) insulin pen See Rx Instructions SC AC MDD 35 units Qty: 30 5RF Rx Instructions: 5 units before breakfast, 3 units before lunch, 9 units before dinner subcut before meals; (DME) OneTouch Ultra Blue Test Strip Strip See Dose Instructions .ROUTE .MEDSUPPLY Qty: 100 4RF Dose Instruction: As directed Rx Instructions: Test QID (DME) FreeStyle John 14 Day Sensor Kit See Rx Instructions .ROUTE .MEDSUPPLY Qty: 1 4RF Rx Instructions: Check Blood sugar 4 times a day (DME) lancets [OneTouch Delica Lancets] 33 gauge misc See Dose Instructions .ROUTE .MEDSUPPLY Qty: 200 4RF Dose Instruction: As directed Rx Instructions: one BID (DME) pen needle, diabetic 31 gauge x 3/16 needle See Rx Instructions .ROUTE .MEDSUPPLY Qty: 100 4RF Rx Instructions: 1 unit SC AC apple cider vinegar 500 mg tablet 1,500 mg PO DAILY insulin glargine [Lantus Solostar U-100 Insulin] 100 unit/mL (3 mL) insulin pen 30 unit SUBCUT QPM Patient Comments: INJECT 30 UNITS UNDER THE SKIN EVERY NIGHT (DME) pen needle, diabetic [Unifine Pentips] 31 gauge x 5/16 needle MISCELLANEOUS Patient Comments: USE DIRECTED Discharge Instructions Instructions: Amoxicillin and Clavulanate, Chlorhexidine Gluconate (Oral), Dental Pain ED Additional Instructions: You were seen in the emergency department for your likely dental infection in the setting of chronic poor dentition, I am starting you on Augmentin and antibiotic used to treat infections of the head and neck, this will cover any sinus infection as well as ear infection simultaneously. Also sent a prescription mouth rinse to use twice daily which will help fight the bacteria living in your mouth and cavities. Please use therapeutic dosing of Tylenol (acetamenophen) & Advil (ibuprofen) in an alternating fashion as follows: Take 1000mg of Tylenol every 6 hours without missing doses- that is 4 times per day. Fdc in between the Tylenol dosings, take 400-600mg of Advil also on a 6 hour schedule, that is also 4 times per day. The daily maximum dosing of Tylenol is 4000mg, and the daily maximum dosing of Advil is 2400mg. This is safe to do for weeks. Please note that some common cold medications & prescription pain medications may contain acetamenophen and you need to read OTC drug labels and factor that in to maximum daily dosings. Please return to the emergency department should you experience difficulty opening or closing her jaw, excessive drooling with severe vocal changes, severe acute worsening or any other emergent concerns Referrals: [facility] [Provider Group] Wesley Mendoza [Primary Care Provider] - Discharge Data Discharge Date/Time-TO BE ENTERED AT DEPARTURE: 02/20/25 17:34 HPI General Date/Time Provider Initiated Documentation: 02/20/25 16:47. HPI Narrative: 59 year-old male presents to ED today by POV/ambulating with a chief complaint of L sided facial swelling with known severe dental decay with onset last night around 2-3am. Quality described as throbbing, no radiation to vocal changes, trismus, excessive drooling, fever, eye pain/swelling, neck stiffness. Severity is described as severe. Palliating factors include Tylenol/ibuprofen without relief. Provoking factors include nothing specific. Events leading up to the incident/Associated Symptoms: Patient has dental follow-up pending. Patient not anticoagulated. Related Data Home Medications ?Medication ?Instructions ?Recorded ?Confirmed flash glucose scanning reader #1 ea 10/23/19 02/20/25 (FreeStyle John 14 Day [place]) insulin aspart U-100 100 unit/mL See Rx Instructions subcut AC #30 08/06/20 02/20/25 (3 mL) subcutaneous pen (Novolog mL FlexPen U-100 Insulin aspart) blood sugar diagnostic (OneTouch #100 ea 11/04/20 02/20/25 Ultra Blue Test Strip) flash glucose sensor (FreeStyle #1 ea 11/04/20 02/20/25 John 14 Day Sensor kit) lancets 33 gauge (OneTouch Delica #200 ea 11/04/20 02/20/25 Lancets) pen needle, diabetic 31 gauge x #100 ea 11/04/20 02/20/2501/20 apple cider vinegar 500 mg tablet 1,500 mg PO DAILY 09/19/23 02/20/25 amoxicillin 875 mg-potassium 1 tab PO BID 14 days #28 tabs 02/20/25 clavulanate 125 mg tablet chlorhexidine gluconate 0.12 % 15 ml mucous membrane DAILY #1,893 02/20/25 mouthwash mL insulin glargine 100 unit/mL (3 30 unit subcut QPM 02/20/25 02/20/25 mL) subcutaneous pen (Lantus Solostar U-100 Insulin) pen needle, diabetic 31 gauge x 02/20/25 02/20/2503/22 (Unifine Pentips) Previous Rx's ?Medication ?Instructions ?Recorded flash glucose scanning reader #1 ea 10/23/19 (FreeStyle John 14 Day [place]) insulin aspart U-100 100 unit/mL See Rx Instructions subcut AC #30 08/06/20 (3 mL) subcutaneous pen (Novolog mL FlexPen U-100 Insulin aspart) blood sugar diagnostic (OneTouch #100 ea 11/04/20 Ultra Blue Test Strip) flash glucose sensor (FreeStyle #1 ea 11/04/20 John 14 Day Sensor kit) lancets 33 gauge (OneTouch Delica #200 ea 11/04/20 Lancets) pen needle, diabetic 31 gauge x #100 ea 11/04/2001/20 amoxicillin 875 mg-potassium 1 tab PO BID 14 days #28 tabs 02/20/25 clavulanate 125 mg tablet chlorhexidine gluconate 0.12 % 15 ml mucous membrane DAILY #1,893 02/20/25 mouthwash mL Allergies Allergy/AdvReac Type Severity Reaction Status Date / Time orange juice Allergy Severe SWELLING, Unverified 02/20/25 15:57 VOMITING General Stated Complaint: FacialProb SALOME: 3 Review of Systems All systems reviewed & are unremarkable except as noted in HPI and below Exam Narrative Exam Narrative: GENERAL APPEARANCE: Well-nourished, non-toxic, awake and alert, atraumatic, no acute distress. SKIN: Warm, pink, dry, intact, without rashes/lesions/ulcerations. HEAD: Normocephalic, atraumatic, normal hair distribution for gender/age. EYES: Normal conjunctiva, no exudates on lids/lashes. ENT: Nares patent, no circumoral cyanosis, diffuse dental decay & caries, uvula midline, no trismus, no vocal changes, managing secretions well, no visible gingival abscesses, maxillary sinus tenderness without overt facial erythema/swelling NECK: Supple, trachea midline, painless cervical ROM. LUNGS/CHEST: Non-labored respirations, normal A/P diameter, symmetrical expansion, no chest wall deformity HEART (CV/PV): No peripheral edema, no JVD. ABDOMEN: Soft, non-distended, no guarding. MSK: Normal ROM, no swelling/deformity to bilateral UEs or LEs, moving all extremities without weakness, no cyanosis, spine midline without tenderness, normal curvature. NEURO: Mental Status AAOx4 - alert to person, place, time, events No facial droop, no forehead involvement. Motor: No focal weakness - strength 5/5 in bilateral UEs and LEs, proximal and distal, symmetric. Sensory: sensation intact to light touch globally. Gait normal: patient ambulated without ataxia into ED room. PSYCH: euthymic, cooperative, pleasant, appropriate speech Course Vital Signs Vital signs: Vital Signs Temperature 37.3 C 02/20/25 15:53 Pulse 84 02/20/25 15:53 Respiratory Rate 16 02/20/25 15:53 Blood Pressure 138/94 H 02/20/25 15:53 Pulse Oximetry 97 02/20/25 15:53 Temperature 36.7 C 02/20/25 16:51 Temperature Source Oral 02/20/25 16:51 Pulse 85 02/20/25 16:51 Pulse Rhythm Regular 02/20/25 16:51 Pulse Strength Normal 02/20/25 16:51 Respiratory Rate 21 02/20/25 16:51 Respiratory Effort Normal 02/20/25 16:51 Respiratory Depth Normal 02/20/25 16:51 Respiratory Pattern Normal 02/20/25 16:51 Blood Pressure 127/85 02/20/25 16:51 Blood Pressure Mean 99 02/20/25 16:51 Blood Pressure Position Sitting 02/20/25 16:51 Pulse Oximetry 100 02/20/25 16:51 Oxygen Delivery Method Room Air 02/20/25 16:51 Oxygen Flow Rate 0 02/20/25 16:51 Pain Level 6 02/20/25 15:53 Comment has taken multiple Nicole aspirin doses 02/20/25 15:53 Medical Decision Making This dictation utilizes [id number] dictation software and may contain unedited grammatical errors. 59 year-old male presents to ED today by POV/ambulating with a chief complaint of L sided facial swelling with known severe dental decay with onset last night around 2-3am. Quality described as throbbing, no radiation to vocal changes, trismus, excessive drooling, fever, eye pain/swelling, neck stiffness. Severity is described as severe. Palliating factors include Tylenol/ibuprofen without relief. Provoking factors include nothing specific. Events leading up to the incident/Associated Symptoms: Patient has dental follow-up pending. Patients' medical history: t2DM, GERD. Family and social history: heavy smoker. Pertinent exam findings / vital signs include diffuse poor dentition, gingivitis, no visible apical abscess, uvula midline, no trismus, no vocal changes. Differential / pathologies of concern include dental infection, not RPA/REGULATORY SCIENTIST. Diagnostic studies of: - none. Interventions of: - Rx for Augmentin. ED Course/Assessment/Plan: 59-year-old male presents with left upper gingival pain and throbbing since last night, has diffuse severe dental decay, no visible gingival abscess or signs of deep space infection clinically, treating empirically for dental infection recommend dental follow-up, strict return criteria for any decreased range of motion of jaw, neck stiffness, fever, vocal changes or excessive drooling. Findings not consistent with REGULATORY SCIENTIST/RPA, dental abscess. Disposition of dental infection. Patient verbalized understanding of the plan and return to ED criteria and engaged in shared decision making. Medical Records Medical records reviewed: Yes I reviewed the patient's medical records. 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 PETIT; 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-EGD Gastro-esophageal reflux disease with esophagitis Diabetes mellitus Surgical History History of open reduction and internal fixation (ORIF) procedure - 2009 (?) Fracture, Open Treatment Thumb and fingers Family History Father Heart disease CABG Daughter No problems noted. Daughter No problems noted. Mother No problems noted. Son No problems noted. Son No problems noted. Social History Smoking/Tobacco Use Status: Current every day Tobacco Type: smokeless tobacco Smokeless tobacco user: snuff Quit status: has quit before Smoking risk assessment performed?: Yes Alcohol Intake: current Alcohol Intake frequency: 0-2 drinks per day Alcohol type: hard liquor Drug use: Never Substance use type: does not use Caregiver/Support person: No Household members: spouse Housing: house Communication Needs: Hard of Hearing Pets and animals: Yes Pets and animals: cat(s) and dog(s) Sexually active: Yes Do you think of yourself as: straight/heterosexual Current gender identity: male What is your relationship status?: How often do you talk on the phone with friends or family?: three or more times per week How often do you get together with friends or relatives?: never How often do you attend mormon or moravian services?: decline to answer Do you belong to any clubs or organized social groups?: no Panel score (0-1 are the most socially isolated patients): 2 What type of physical activity do you participate in: decline to answer Duration: decline to answer Frequency: decline to answer Jimena/Rastafarian: None Special jimena needs: No Seatbelt use: sometimes Helmet use: No Drive intox or ride w/intox 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
[2025-02-20 17:21] VITALS: BP 148/97; PULSE 94; PULSE 95; RESP 16; TEMP 36.9; TEMP 37; O2SAT 97; O2SAT 98
== END 2025-02-20 17:34 | disposition home or self-care (01) ==
LOC: ER 17:41
PROVIDERS: Emergency Provider Physician Assistant; PCP Physician Assistant
DX: K04.7 Periapical abscess without sinus (principal); K02.9 Dental caries, unspecified; E11.9 Type 2 diabetes mellitus without complications; E78.5 Hyperlipidemia, unspecified; F17.290 Nicotine dependence, other tobacco product, uncomplicated; Z79.4 Long term (current) use of insulin